=== PATIENT | male | born 1990 | race Caucasian/White ===

== ENCOUNTER 2017-09-03 20:31 | Emergency (ER) | payer MEDICAID ==
[2017-09-03] MEDS ORDERED: TETANUS/DIPHTHERIA TOXOID [ADULT] 0.5 ML VIAL IM ONE (21:36)
== END 2017-09-03 22:19 | disposition home or self-care (01) ==
LOC: EDH 20:31
DX: S01.81XA Laceration without foreign body of other part of head, initial encounter (principal); Z72.0 Tobacco use; V19.88XA Pedal cyclist (driver) (passenger) injured in other specified transport accidents, initial encounter; Y93.89 Activity, other specified; Y92.89 Other specified places as the place of occurrence of the external cause; Y99.8 Other external cause status
CPT/HCPCS: 90471; 90714